=== PATIENT | male | born 1990 | race Caucasian/White ===

== ENCOUNTER 2021-08-23 17:07 | Inpatient (IN) | payer SELFPAY ==
[2021-08-23] VITALS (9 sets, daily range): BP systolic 117–129; BP diastolic 63–74; PULSE 26–105; RESP 18–36; TEMP 36.9–37.6; O2SAT 83–96; BMI 30.6; BMI 29.7
--- NOTE | 2021-08-23 17:47 | EKG12_ITS ---
Test Reason : Blood Pressure : / mmHG Vent. Rate : 111 BPM Atrial Rate : 111 BPM P-R Int : 112 ms QRS Dur : 086 ms QT Int : 318 ms P-R-T Axes : 040 065 -16 degrees QTc Int : 432 ms Sinus tachycardia T wave abnormality, consider inferior ischemia Abnormal ECG Confirmed by KATHERINE ANDERSON, DEBORAH ([id number]), graphic editor JANELL JEFFERS ([id number]) on 08/27/2021 1:01:29 PM Referred By: EMILIO Confirmed By:DEBORAH MURPHY MD
[2021-08-23] MEDS: dexAMETHasone 10 MG/ML Vial IV (17:56)
[2021-08-23 18:03] LABS: Absolute Lymphocyte Count 0.51 X10^3/uL (0.83-4.51); Absolute Neutrophil Count 6.5 X10^3/uL (2.0-7.7); Basophil# 0.01 X10^3/uL; Basophil% 0.1 % (0-1); Hematocrit 43.5 % (40-54); Lymphocyte # 0.51 X10^3/ul (0.83-4.51); Mean Corp Hgb Conc 34.5 g/dL (32-36); Mean Corpuscular Hgb 30.3 pg (27.0-32.0); Mean Corpuscular Volume 87.9 fL (80-94); Mean Platelet Vol. 9.5 fl (6.2-12.0); Monocyte# 0.18 X10^3/uL; Monocyte% 2.5 % (0-10); NRBC Flagged by Analyzer 0 % (0-5); Neutrophil # 6.53 X10^3/uL (2.7-7.7); POSITIVE DIFFERENTIAL YES; Platelet Count 273 K/mm3 (150-450); RBC Distribution Width CV 11.5 % (11.6-14.6); Red Blood Count 4.95 M/mm3 (4.6-6.2); White Blood Count 7.3 K/mm3 (4.4-11.0)
[2021-08-23 18:05] LABS: Anion Gap 7 (5-15); BUN 13 mg/dL (7-18); BUN/Creat Ratio 15.8 RATIO (10-20); Calcium,Total 8.7 mg/dL (8.5-10.1); Chloride 104 mmol/L (98-107); Creatinine, Serum 0.82 mg/dL (0.70-1.30); EST Glomerular Filtration Rate 114 mL/min (>60); Est Glom Filt Rate - Afr Amer 138 mL/min (>60); Estimated Creatinine Clearance 136.47 ml/min; Glucose 117 mg/dL (74-106); Magnesium 2.7 mg/dL (1.6-2.6); Potassium 3.4 mmol/L (3.5-5.1); Sodium Level 136 mmol/L (136-145)
--- NOTE | 2021-08-23 18:15 | CT_ITS ---
STUDY: CTA CHEST REASON FOR EXAM: Male, 31 years old. Hypoxia. Question PE. Shortness of breath with loss of taste and smell. Body aches beginning 12 days ago. Oxygen saturation is 81 on room air. Negative COVID test. RADIATION DOSAGE (If Supplied By Facility): CTDIvol = ( 9.815 ) mGy, DLP = ( 530.57 ) mGycm TECHNIQUE: The examination was performed with the intravenous administration of IV 100mL Isovue-370. Post-processing of the angiographic images was performed, with multiplanar reformation and 3D reconstruction. Individualized dose optimization techniques were used for this CT. COMPARISON: None. FINDINGS: Normal enhancement of the main pulmonary artery and right and left pulmonary arteries. Normal enhancement of the bilateral peripheral pulmonary arteries. There is no demonstrated pulmonary embolism. Normal thoracic aorta and visualized great vessels. There is no demonstrated aortic dissection. Normal heart and pericardium. Nonspecific mediastinal lymphadenopathy. Normal hilar regions. Normal visualized trachea and bronchi. The lungs are well expanded. Groundglass peripheral pulmonary infiltrates most marked at the lung bases. There is no focal mass or consolidation. Normal pleura. Normal chest wall structures. Normal osseous structures. Normal visualized upper abdomen. CT/CTA Chest W/WO Contrast IMPRESSION: 1. No evidence of pulmonary embolus. 2. No aortic dissection or aneurysm. 3. Groundglass pulmonary infiltrates suspicious for COVID pneumonia. Electronically Signed: Oli Degroot DO at 19:24 EDT Tel [phone], Service support ,
[2021-08-23 18:17] LABS: Differential Indicated SCAN CRITERIA MET
--- NOTE | 2021-08-23 18:18 | ED.VIS.DYS ---
HPI History of Present Illness Chief Complaint: Shortness of Breath Narrative Narrative: Patient is a 31-year-old male with no reported significant past medical or surgical history. He states he does not smoke or vape and he does not need supplemental oxygen. He also reports he is not vaccinated against Covid. He reports that approximately a week ago he began with mild congestion and cough and fatigue. He states that over the past week the symptoms have been slowly worsening to the point where he is short of breath with speech or any type of mild exertion. Secondary to this EMS was called and he was brought in for evaluation. EMS does report that upon arrival his pulse ox was in the low 80s on room air [facility] Home Medications acetaminophen 1,000 mg PO BID 08/23/21 [History Last Taken 08/21/21] naproxen sodium [Aleve] 220 mg PO BID PRN 08/23/21 [History Last Taken 08/23/21 04:00] Allergy/AdvReac Type Severity Reaction Status Date / Time No Known Allergies Allergy Verified 08/23/21 17:08 Surgical History History of orthopedic surgery Social History Smoking Status: Never smoker [facility] ED Constitutional Constitutional ED: Denies chills or fever(s) ENT ENT ED: Reports rhinorrhea and sore throat Cardiovascular Cardiovascular: Reports racing heartbeat; Denies chest pain Respiratory/Chest Respiratory/Chest: Reports cough, dyspnea, dyspnea on exertion and sputum Gastrointestinal Gastrointestinal: Denies abdominal pain, diarrhea, nausea or vomiting Genitourinary Genitourinary ED: Denies dysuria Musculoskeletal Musculoskeletal: Reports myalgias Integumentary Denies rash Neurologic Neurologic: Denies headache(s) Hematologic/Lymphatic Hematologic/Lymphatic: Denies easy bleeding or easy bruising EXAM Physical Exam Const Vital Signs: 08/23/21 17:08 08/23/21 17:13 08/23/21 18:03 Temperature 99.1 F 99.1 F Temperature Source Temporal Temporal Pulse Rate 101 H 26 L Respiratory Rate 31 H 25 H Respiratory Effort Short of Breath Respiratory Pattern Tachypnea Blood Pressure 126/74 H 126/74 H Blood Pressure Mean 91 91 Pulse Ox 94 95 Oxygen Delivery Method Nasal Cannula Nasal Cannula Oxygen Flow Rate (L/min) 3 3 08/23/21 19:53 08/23/21 20:13 08/23/21 20:25 Temperature 99.6 F H 99.6 F H Temperature Source Oral Oral Pulse Rate 87 83 83 Respiratory Rate 20 H 23 H 23 H Respiratory Effort Respiratory Pattern Blood Pressure 129/72 H 126/70 H 126/70 H Blood Pressure Mean 91 88 88 Pulse Ox 95 83 96 Oxygen Delivery Method Nasal Cannula Nasal Cannula Nasal Cannula Oxygen Flow Rate (L/min) 3 3 3 Positive well nourished and well developed General Appearance ED: well developed HEENT Reports moist mucous membranes HEENT Narrative: No tongue or lip swelling Eyes PERRL and EOMs intact bilaterally Neck supple and no JVD Neck Narrative: Positive anterior cervical lymphadenopathy Resp Resp Narrative: Patient has tachypnea and accessory muscle use. Breath sounds are diminished throughout with faint expiratory wheeze Cardio regular rate Cardio Narrative: Tachycardic rate with regular rhythm GI non-tender and non-distended Auscultation: normoactive bowel sounds Palpation: soft Extremity normal to inspection Extremity Narrative: No asymmetric edema no pitting edema negative Homans' sign bilaterally Neuro oriented x3 and CN's II-XII intact bilaterally Sensorium / Orientation: alert Psych mental status grossly normal Skin no rashes or lesions noted Rashes: no rashes MDM MDM MDM Narrative Medical decision making narrative: Patient presented to the ER hypoxic and tachycardic with symptoms concerning for Covid. His EKG showed an S1Q3T3 and therefore a CTA was obtained which shows groundglass opacities consistent with Covid pneumonia but no pulmonary embolus. Remainder of his labs reveal no clinically significant findings but with his persistent hypoxia and groundglass opacities on CTA I do feel he needs to be placed in the hospital and therefore will be admitted at this time Lab Data Attestation: I reviewed the patient's lab results. Labs: Laboratory Results - last 24 hr 08/23/21 08/23/21 17:00 17:00 WBC 7.3 RBC 4.95 Hgb 15.0 Hct 43.5 MCV 87.9 MCH 30.3 MCHC 34.5 RDW Std Deviation 37.0 RDW Coeff of Shanae 11.5 L Plt Count 273 MPV 9.5 Immature Gran % (Auto) 0.400 Neut % (Auto) 90.0 H Lymph % (Auto) 7.0 L [place] % (Auto) 2.5 Eos % (Auto) 0.0 Baso % (Auto) 0.1 Absolute Neuts (auto) 6.5 Absolute Lymphs (auto) 0.51 L Nucleated RBC % 0 Differential Comment SEE COMMENT Platelet Estimate ADEQUATE RBC Morphology NORM C+C Sodium 136 Potassium 3.4 L Chloride 104 Carbon Dioxide 25.0 Anion Gap 7 BUN 13 Creatinine 0.82 Estim Creat Clear Calc 136.47 Est GFR (MDRD) Af Amer 138 Est GFR (MDRD) Non-Af 114 BUN/Creatinine Ratio 15.8 Glucose 117 H Calcium 8.7 Magnesium 2.7 H Radiography Diagnostic Testing: Radiology Impression Chest CTA 08/23/21 18:15 IMPRESSION: 1. No evidence of pulmonary embolus. 2. No aortic dissection or aneurysm. 3. Groundglass pulmonary infiltrates suspicious for COVID pneumonia. Electronically Signed: Oli Degroot DO at 19:24 EDT Tel [phone], Service support , Critical Care Time Critical Care Time: Yes Critical care time (excluding procedures): - (31 minutes) Discharge Plan Triage Chief Complaint: Shortness of Breath ED Provider: Gume Nieto Dx/Rx/DC Orders Clinical Impression: Acute and chronic respiratory failure with hypoxia Prescriptions: No Action acetaminophen 500 mg Tablet 1,000 mg PO BID RF: 0 naproxen sodium [Aleve] 220 mg Tablet 220 mg PO BID PRN (Reason: Pain) RF: 0 Primary Care Provider: Luis Kan NP Referrals: Luis Kna [employer]ING [employer] SITE MANAGER, DECOMMISSIONING WELL SITE MANAGER-C [Primary Care Provider] - Disposition [facility]
[2021-08-23 18:38] LABS: Platelet Estimate ADEQUATE (ADEQ); Red Cell Morphology NORM C+C NORMAL (NORM C&C)
--- NOTE | 2021-08-23 18:57 | HP.PCM.HOS_ITS ---
HPI - General General Date of Admission: 08/23/21 Date of Service: 08/23/21 Chief Complaint: COVID sxs, worsening, hypoxic HPI Narrative The patient is a 31 y/o M w/ no marked PMHx who presents to the [facility] ED on 08/23/21 with history of onset ~11 days prior fever, chills, headache, cough, dyspnea, mildly loose stools, loss of sense of taste and smell with worsening fatigue and malaise prompting eventual ED evaluation. He noted notable increased work of breathing which was the primary etiology for presentation. He denies having been vaccinated but is amenable to vaccination once he recovers. He denies being around any ill individuals. Work-up in the ED included T 99.1, heart rate 105, BP 126/74, respiratory rate initially 36, initially 87% on room air with improvement to respiratory rate 25, 95% on 3 L nasal cannula, CBC with WC 7.3, hemoglobin 15, platelet 273 with lymphopenia, BMP with potassium 3.4, glucose 117, magnesium 2.7, CTPA without evidence of PE, no dissection or aneurysm with diffuse ground-glass pulmonary infiltrates consistent with COVID PNA, rapid Covid antigen negative, pending PCR upon admission. In the ED patient administered IV decadron. [facility] Medical History (Updated 08/23/21 @ 20:[address] Carlie Flores MD) No significant past medical history Home Medications acetaminophen 1,000 mg PO BID 08/23/21 [History Last Taken 08/21/21] naproxen sodium [Aleve] 220 mg PO BID PRN 08/23/21 [History Last Taken 08/23/21 04:00] Allergy/AdvReac Type Severity Reaction Status Date / Time No Known Allergies Allergy Verified 08/23/21 17:08 Family History (Updated 08/23/21 @ 20:[address] Carlie Flores MD) Father Diabetes other (No marked maternal family history including HD, DM, CA.) Surgical History (Updated 08/23/21 @ 20:[address] Carlie Flores MD) History of orthopedic surgery History of surgery on extremity Status post right foot surgery Social History (Updated 08/23/21 @ 20:[address] Carlie Flores MD) household members: none Smoking Status: Never smoker alcohol intake: never substance use type: does not use ROS ROS Narrative Admission Review of Systems: CONSTITUTIONAL: No weight loss, + fever, chills, weakness or fatigue. HEENT: + FUENTES, congestion. Eyes: No visual loss, blurred vision, double vision or yellow sclerae. Ears, Nose, Throat: No hearing loss, sneezing. SKIN: No rash or itching, lesions, wounds. CARDIOVASCULAR: No chest pain, chest pressure or chest discomfort, palpitations, edema, orthopnea, syncopal events. RESPIRATORY: + shortness of breath, cough without marked sputum, No wheezing, hemoptysis. GASTROINTESTINAL: + anorexia, diarrhea, No nausea, vomiting, abdominal pain, melena, BRBPR. GENITOURINARY: No dysuria, frequency, urgency or retention. NEUROLOGICAL: + headache, No dizziness, syncope, paralysis, ataxia, numbness or tingling in the extremities, focal weakness, change in bowel or bladder control, seizure. MUSCULOSKELETAL: + muscle, back pain, joint pain or stiffness. HEMATOLOGIC: No anemia, bleeding or bruising. LYMPHATICS: No enlarged nodes. No history of splenectomy. PSYCHIATRIC: No history of depression or anxiety. ENDOCRINOLOGIC: No reports of sweating, cold or heat intolerance. No polyuria or polydipsia. ALLERGIES: No history of asthma, hives, eczema or rhinitis. Vital Signs Vital Signs Vital Signs: 08/23/21 17:08 08/23/21 17:13 08/23/21 18:03 Temperature 99.1 F 99.1 F Temperature Source Temporal Temporal Pulse Rate 101 H 26 L Respiratory Rate 31 H 25 H Respiratory Effort Short of Breath Respiratory Pattern Tachypnea Blood Pressure 126/74 H 126/74 H Blood Pressure Mean 91 91 Pulse Ox 94 95 Oxygen Delivery Method Nasal Cannula Nasal Cannula Oxygen Flow Rate (L/min) 3 3 Weight Weight: 219 lb 9.286 oz Body Mass Index (BMI) 30.6 Physical Exam Narrative Physical Examination: General: Awake, alert, oriented x 3 and cooperative, seated upright in the ED bed, fatigued and ill appearing. Skin: Normal color, normal turgor, no icterus, no cyanosis. HEENT: AT/NC, EOMI, PERRLA, dry MM, no carotid bruits or JVD noted. Lungs: Diminished, > bases, increased RR and some accessory muscle usage, evidence mild distress, improved since initial ED presentation, no rales, ronchi or wheezing. Heart: Mildly tachycardic with regular rhythm; no gallop, rub audible. Abdomen: Soft, NTTP, ND, normal BS, no HSM. Extremities: No cyanosis, clubbing, or edema. Neurological: Patient awake, alert, oriented as noted, cognitive function intact; pupils equally reactive to light and accommodation, cranial nerves II- XII grossly normal, moving all 4 extremities, no focal deficits, strength severely globally decreased secondary to acute presentation. Psychiatric: Affect appears fatigued, ill appearing, evidence mild respiratory distress, no acute evidence of depressive or anxiety feelings. Results Lab / Micro Data Result Diagrams: 08/23/21 17:00 08/23/21 17:00 Labs: Laboratory Results - last 24 hr 08/23/21 17:00: Sodium 136, Potassium 3.4 L, Chloride 104, Carbon Dioxide 25.0, Anion Gap 7, BUN 13, Creatinine 0.82, Estim Creat Clear Calc 136.47, Est GFR (MDRD) Af Amer 138, Est GFR (MDRD) Non-Af 114, BUN/Creatinine Ratio 15.8, Glucose 117 H, Calcium 8.7, Magnesium 2.7 H 08/23/21 17:00: WBC 7.3, RBC 4.95, Hgb 15.0, Hct 43.5, MCV 87.9, MCH 30.3, MCHC 34.5, RDW Std Deviation 37.0, RDW Coeff of Shanae 11.5 L, Plt Count 273, MPV 9.5, Immature Gran % (Auto) 0.400, Neut % (Auto) 90.0 H, Lymph % (Auto) 7.0 L, [place] % (Auto) 2.5, Eos % (Auto) 0.0, Baso % (Auto) 0.1, Absolute Neuts (auto) 6.5, Absolute Lymphs (auto) 0.51 L, Nucleated RBC % 0, Differential Comment SEE COMMENT, Platelet Estimate ADEQUATE, RBC Morphology NORM C+C Micro: Microbiology 08/23/21 17:18 Nasal Secretion SARS-CoV-2 Antigen (Rapid) - Final Assessment & Plan Assessment/Plan (1) Acute respiratory failure with hypoxia: (2) Pneumonia due to COVID-19 virus: PLAN: The patient is a 31 y/o M w/ no marked PMHx who presents to the [facility] ED on 08/23/21 with history of onset ~11 days prior fever, chills, headache, cough, dyspnea, mildly loose stools, loss of sense of taste and smell with worsening fatigue and malaise prompting eventual ED evaluation. 1. Acute Dyspnea, Cough, Fever with Acute Bilateral Pneumonia secondary to Acu te Viral Syndrome, COVID-19: Acute antigen negative; however, presentation consistent with COVID PNA as well as work-up, pending PCR upon admission. Will admit to the [facility] with COVID precautions, will maintain on oxygen with wean as tolerated to room air, PRN albuterol, HOB, IS parameters w/ pending sputum cultures, respiratory viral panel and urine antigens, will obtain D-dimer, procalcitonin, CRP, CPK, Ferritin, LDH, trop and BNP, continue supportive care including q 2 hour turning including prone given no prone bed availability and judicious hydration, closely monitor for worsening status for ARDS and multiorgan failure, will initiate and continue IV decadron x 10 doses, > 10 days since onset sxs therefore will defer Remdesivir. 2. Hypokalemia: Admission K+ 3.4, magnesium 2.7, supplementation given, repeat level in AM. 3. DVT Prophylaxis: SCDs, lovenox. 4. Code status: Full Code. Charges/Coding Visit Charges Inpatient E&M: 99593 Init Hosp L2
[2021-08-23 21:27] LABS: Probe Check PASS
[2021-08-23 22:06] LABS: AST(SGOT) 31 U/L (15-37); Alanine Aminotransfer ALT/SGPT 35 U/L (16-61); Albumin, Serum 3.2 g/dL (3.2-5.0); Alkaline Phosphatase 57 U/L (45-117); Bilirubin, Direct 0.26 mg/dL (0.00-0.30); Ferritin 1194 ng/mL (26-388); Globulin 4.7 g/dL (2.2-4.2); LDH 417 U/L (87-241); Phosphorus 1.4 mg/dL (2.5-4.9); Protein, Total 7.9 g/dL (6.4-8.2)
[2021-08-23 22:23] LABS: D-Dimer Quantitative (DVT/PE) 1.07 FEU/ug/m (0.27-0.49)
[2021-08-23 22:29] LABS: BNP,B-Type NATRIURETIC PEPTIDE 11.1 pg/mL (0-100)
[2021-08-23 22:37] LABS: Procalcitonin 0.14 ng/mL (0.00-0.09)
[2021-08-23] MEDS: 0.9% Normal Saline 1,000 ML 100 ML IV (22:58)
[2021-08-23] MEDS: Enoxaparin 30 MG/0.3 ML Syringe SC (22:59)
[2021-08-24] VITALS (10 sets, daily range): BP systolic 109–130; BP diastolic 54–74; PULSE 44–90; RESP 18–20; TEMP 36.5–36.8; O2SAT 94–97
--- NOTE | 2021-08-24 00:03 | PCS.PANDOC ---
PANDEMIC DOCUMENTATION INITIATED: Date: 07/16/2021 Time: 190
[2021-08-24 06:29] LABS: Absolute Neutrophil Count 3.8 X10^3/uL (2.0-7.7); Hematocrit 42.9 % (40-54); Hemoglobin 14.4 g/dL (13.0-16.5); Lymphocyte % 7.3 % (19-41); Mean Corp Hgb Conc 33.6 g/dL (32-36); Mean Corpuscular Hgb 29.9 pg (27.0-32.0); Mean Corpuscular Volume 89.2 fL (80-94); Mean Platelet Vol. 9.5 fl (6.2-12.0); Monocyte# 0.05 X10^3/uL; Monocyte% 1.2 % (0-10); NRBC Flagged by Analyzer 0 % (0-5); Neutrophil # 3.75 X10^3/uL (2.7-7.7); POSITIVE DIFFERENTIAL YES; POSITIVE MORPHOLOGY YES; Platelet Count 268 K/mm3 (150-450); RBC Distribution Width CV 11.6 % (11.6-14.6); RBC Distribution Width SD 38.1 fl (35.1-43.9); Red Blood Count 4.81 M/mm3 (4.6-6.2); White Blood Count 4.1 K/mm3 (4.4-11.0)
[2021-08-24 06:38] LABS: Differential Indicated SCAN CRITERIA MET
[2021-08-24 06:48] LABS: ALB/GLOB Ratio 0.6 RATIO (0.9-2.4); AST(SGOT) 26 U/L (15-37); Alanine Aminotransfer ALT/SGPT 35 U/L (16-61); Albumin, Serum 2.8 g/dL (3.2-5.0); Alkaline Phosphatase 53 U/L (45-117); Anion Gap 6 (5-15); BUN 16 mg/dL (7-18); BUN/Creat Ratio 22.3 RATIO (10-20); Calcium,Total 8.4 mg/dL (8.5-10.1); Chloride 107 mmol/L (98-107); Creatinine, Serum 0.72 mg/dL (0.70-1.30); EST Glomerular Filtration Rate 134 mL/min (>60); Est Glom Filt Rate - Afr Amer 163 mL/min (>60); Estimated Creatinine Clearance 155.42 ml/min; Globulin 4.6 g/dL (2.2-4.2); Glucose 214 mg/dL (74-106); Protein, Total 7.4 g/dL (6.4-8.2); Sodium Level 137 mmol/L (136-145)
[2021-08-24 07:15] LABS: Differential Comment SCANNED
[2021-08-24 07:48] LABS: Phosphorus 2.2 mg/dL (2.5-4.9)
[2021-08-24] MEDS: Enoxaparin 30 MG/0.3 ML Syringe SC ×2 (09:02→21:16)
[2021-08-24] MEDS: 0.9% Saline Lock 10 ML Syringe IV (09:02)
[2021-08-24] MEDS: dexAMETHasone 4 MG/ML Vial 6 MG IV (09:02)
--- NOTE | 2021-08-24 10:35 | CASEMGMT ---
JEAN CARLOS JEFF Assessment: Face to Face with pt for initial transition planning/care coordination assessment. JEAN CARLOS JEFF introduced self and role at [facility], pt voices understanding and consents to assessment. Pt is A/O x4 and answers all questions appropriately at this time. Pt lying in bed with O2 in no distress. Care providers, pharmacy, and demographics verified/updated. Admitting Dx: COVID PNA, hypoxia PCP: Richardson Kan VASCULAR NEUROLOGIST Specialists: Pt denies. Preferred Pharmacy: [facility] while inpatient. Insurance: [employer] Prescription Benefit: Pt reports he gets a discount card for prescriptions. LW/HPOA: Pt denies having LW/DPOA and need for info regarding any AD. LNOK: Yolande Adams, mother Living Arrangements: Pt lives alone in a two story house but mainly uses the first floor with two steps to enter. Pt reports being I in ADL's and denies concerns at home. Transportation: Pt states he drives himself and denies concerns with transportation. Pt states currently he feels weak but he has friends and family who can transport him. DME/HHC: Pt denies having any DME or previous HHC. Pt states he was first tested at [facility] for COVID. Pt states his family, friends and [facility] have already been providing groceries and supplies for pt. Pt states with his insurance, he receives a bill from the provider and then submits it to his insurance who then pays it. Pt states he has no in network providers. No insurance card scanned in. Pt states he prefers [employer] for his O2 should he need it when dc'ing. Pt works timers inspector. Denies any alcohol, cigarette, street drug or illegal drug use. Pt states no concerns with going home at time of dc. Pt states no further concerns/needs. CM to follow. Advised pt to ask CM if any further question/concerns/needs arise, voices understanding. Pt Goal: Home Plan: Home
[2021-08-24] MEDS: Na Biphos/Potassium Phosphate PACKET 1 PACKET PO ×3 (11:07→21:16)
--- NOTE | 2021-08-24 14:09 | PCM.PN.HOSP ---
Subjective Subjective Patient was seen and examined. He is on 2 L of oxygen. He is starting to feel little better. Denied any fever or chills. Objective Data Objective Data Vital Signs: Vital Signs Temp Pulse Resp BP Pulse Ox 98.3 F 79 18 126/72 H 97 08/24/21 13:24 08/24/21 13:24 08/24/21 13:24 08/24/21 13:24 08/24/21 13:24 Oxygen Flow Rate (L/min) 3 Oxygen Delivery Method Nasal Cannula Weight: 97.069 kg Body Mass Index (BMI) 29.7 Intake & Output: Intake and Output for Last 24 Hours 08/22/21 08/23/21 08/24/21 23:59 23:59 23:59 Intake Total 240 / 240 2190 / 2190 Balance 240 / 240 2190 / 2190 Lab / Micro Data Result Diagrams: 08/24/21 05:35 08/24/21 05:35 Labs: Laboratory Results - last 24 hr 08/23/21 17:00: Sodium 136, Potassium 3.4 L, Chloride 104, Carbon Dioxide 25.0, Anion Gap 7, BUN 13, Creatinine 0.82, Estim Creat Clear Calc 136.47, Est GFR (MDRD) Af Amer 138, Est GFR (MDRD) Non-Af 114, BUN/Creatinine Ratio 15.8, Glucose 117 H, Calcium 8.7, Magnesium 2.7 H 08/23/21 17:00: WBC 7.3, RBC 4.95, Hgb 15.0, Hct 43.5, MCV 87.9, MCH 30.3, MCHC 34.5, RDW Std Deviation 37.0, RDW Coeff of Shanae 11.5 L, Plt Count 273, MPV 9.5, Immature Gran % (Auto) 0.400, Neut % (Auto) 90.0 H, Lymph % (Auto) 7.0 L, [place] % (Auto) 2.5, Eos % (Auto) 0.0, Baso % (Auto) 0.1, Absolute Neuts (auto) 6.5, Absolute Lymphs (auto) 0.51 L, Nucleated RBC % 0, Differential Comment SEE COMMENT, Platelet Estimate ADEQUATE, RBC Morphology NORM C+C 08/23/21 17:00: Phosphorus 1.4 L, Ferritin 1194 H, Total Bilirubin 0.90, Direct Bilirubin 0.26, AST 31, ALT 35, Alkaline Phosphatase 57, Lactate Dehydrogenase 417 H, C-React Prot Ext Range 188.00 H, Total Protein 7.9, Albumin 3.2, Globulin 4.7 H 08/23/21 17:00: B-Natriuretic Peptide 11.1 08/23/21 19:26: COVID-19 ([facility]) Positive 08/23/21 21:40: D-Dimer Quant (PE/DVT) 1.07 H* 08/23/21 21:40: Procalcitonin 0.14 H 08/24/21 05:35: WBC 4.1 L, RBC 4.81, Hgb 14.4, Hct 42.9, MCV 89.2, MCH 29.9, MCHC 33.6, RDW Std Deviation 38.1, RDW Coeff of Shanae 11.6, Plt Count 268, MPV 9.5, Immature Gran % (Auto) 0.500, Neut % (Auto) 91.0 H, Lymph % (Auto) 7.3 L, [place] % (Auto) 1.2, Eos % (Auto) 0.0, Baso % (Auto) 0.0, Absolute Neuts (auto) 3.8, Absolute Lymphs (auto) 0.30 L, Nucleated RBC % 0, Differential Comment SCANNED, Diff Path Review March08/24/21 05:35: Sodium 137, Potassium 4.0, Chloride 107, Carbon Dioxide 24.0, Anion Gap 6, BUN 16, Creatinine 0.72, Estim Creat Clear Calc 155.42, Est GFR (MDRD) Af Amer 163, Est GFR (MDRD) Non-Af 134, BUN/Creatinine Ratio 22.3 H, Glucose 214 H, Calcium 8.4 L, Total Bilirubin 0.50, AST 26, ALT 35, Alkaline Phosphatase 53, Total Protein 7.4, Albumin 2.8 L, Globulin 4.6 H, Albumin/Globulin Ratio 0.6 L 08/24/21 05:35: Phosphorus 2.2 L Micro: Microbiology 08/24/21 00:10 Urine, Clean Catch Streptococcus pneumoniae Antigen (M - Final 08/24/21 00:10 Urine, Clean Catch Legionella Antigen - Final 08/23/21 17:18 Mucosa - Nasopharyngeal Respiratory Panel (PCR) - Final 08/23/21 17:18 Nasal Secretion SARS-CoV-2 Antigen (Rapid) - Final Radiography Diagnostic Testing: Radiology Impression Chest CTA 08/23/21 18:15 IMPRESSION: 1. No evidence of pulmonary embolus. 2. No aortic dissection or aneurysm. 3. Groundglass pulmonary infiltrates suspicious for COVID pneumonia. Electronically Signed: Oli Degroot DO at 19:24 EDT Tel [phone], Service support , Physical Exam Narrative Physical exam: General: Alert, Oriented x3, Cooperative, No apparent distress, obese, on 2 L oxygen HEENT: Atraumatic Oral: Moist Mucosa Neck: Supple Lungs: Clear to auscultation Cardiovascular: HS I+II, regular, no murmurs Abdomen: Bowel Sounds Present, Soft, Non Tender Extremities: No edema Assessment & Plan Assessment/Plan (1) Acute respiratory failure with hypoxia: (2) Pneumonia due to COVID-19 virus: PLAN: 1. Acute hypoxic respiratory failure secondary to acute COVID-19 pneumonia Patient is currently on 3 L of oxygen CTA of the chest is negative for acute PE. Showed bilateral groundglass opacities. Patient is on Decadron, out of the window for remdesivir Encourage use of incentive spirometer, wean off SPO2 more than 94% 2. Acute hypophosphatemia, phosphorus is 2.2, replaced 3. Hypokalemia, resolved Charges/Coding Visit Charges Inpatient E&M: 98768 Subs Hosp L3
[2021-08-25] VITALS (11 sets, daily range): BP systolic 104–141; BP diastolic 51–62; PULSE 51–85; RESP 18–22; TEMP 36.4–36.7; O2SAT 86–98
[2021-08-25 08:16] LABS: Absolute Lymphocyte Count 0.67 X10^3/uL (0.83-4.51); Absolute Neutrophil Count 10.8 X10^3/uL (2.0-7.7); Basophil# 0.01 X10^3/uL; Basophil% 0.1 % (0-1); Hematocrit 41.3 % (40-54); Hemoglobin 13.7 g/dL (13.0-16.5); Lymphocyte # 0.67 X10^3/ul (0.83-4.51); Lymphocyte % 5.6 % (19-41); Mean Corp Hgb Conc 33.2 g/dL (32-36); Mean Corpuscular Hgb 29.6 pg (27.0-32.0); Mean Corpuscular Volume 89.2 fL (80-94); Mean Platelet Vol. 9.7 fl (6.2-12.0); Monocyte# 0.46 X10^3/uL; Monocyte% 3.8 % (0-10); NRBC Flagged by Analyzer 0 % (0-5); Neutrophil # 10.76 X10^3/uL (2.7-7.7); Neutrophil % 89.8 % (47-70); Platelet Count 376 K/mm3 (150-450); RBC Distribution Width CV 11.9 % (11.6-14.6); RBC Distribution Width SD 38.5 fl (35.1-43.9); Red Blood Count 4.63 M/mm3 (4.6-6.2)
[2021-08-25 08:46] LABS: ALB/GLOB Ratio 0.6 RATIO (0.9-2.4); AST(SGOT) 19 U/L (15-37); Alanine Aminotransfer ALT/SGPT 32 U/L (16-61); Albumin, Serum 2.7 g/dL (3.2-5.0); Alkaline Phosphatase 50 U/L (45-117); Anion Gap 6 (5-15); BUN 20 mg/dL (7-18); Calcium,Total 8.8 mg/dL (8.5-10.1); Chloride 110 mmol/L (98-107); Creatinine, Serum 0.77 mg/dL (0.70-1.30); EST Glomerular Filtration Rate 124 mL/min (>60); Est Glom Filt Rate - Afr Amer 150 mL/min (>60); Estimated Creatinine Clearance 145.33 ml/min; Globulin 4.3 g/dL (2.2-4.2); Glucose 122 mg/dL (74-106); Potassium 4.4 mmol/L (3.5-5.1); Sodium Level 142 mmol/L (136-145)
[2021-08-25] MEDS: Furosemide 40 MG/4 ML Vial IV (10:21)
[2021-08-25] MEDS: dexAMETHasone 4 MG/ML Vial 6 MG IV (10:21)
[2021-08-25] MEDS: Enoxaparin 30 MG/0.3 ML Syringe SC ×2 (10:22→21:17)
--- NOTE | 2021-08-25 10:31 | PCM.PN.HOSP ---
Subjective Subjective Patient was seen and examined. He is on 2 to 3 L of oxygen. He feels improved. Objective Data Objective Data Vital Signs: Vital Signs Temp Pulse Resp BP Pulse Ox 98.0 F 61 20 H 108/62 93 08/25/21 08:21 08/25/21 08:21 08/25/21 08:59 08/25/21 08:21 08/25/21 08:59 Oxygen Flow Rate (L/min) 2 Oxygen Delivery Method Nasal Cannula Weight: 94.8 kg Body Mass Index (BMI) 29.7 Intake & Output: Intake and Output for Last 24 Hours 08/23/21 08/24/21 08/25/21 23:59 23:59 23:59 Intake Total 240 / 240 3140 / 3140 500 / 500 Balance 240 / 240 3140 / 3140 500 / 500 Lab / Micro Data Result Diagrams: 08/25/21 06:45 08/25/21 06:45 Labs: Laboratory Results - last 24 hr 08/25/21 06:45: WBC 12.0 H, RBC 4.63, Hgb 13.7, Hct 41.3, MCV 89.2, MCH 29.6, MCHC 33.2, RDW Std Deviation 38.5, RDW Coeff of Shanae 11.9, Plt Count 376, MPV 9.7, Immature Gran % (Auto) 0.700, Neut % (Auto) 89.8 H, Lymph % (Auto) 5.6 L, [place] % (Auto) 3.8, Eos % (Auto) 0.0, Baso % (Auto) 0.1, Absolute Neuts (auto) 10.8 H, Absolute Lymphs (auto) 0.67 L, Nucleated RBC % 0 08/25/21 06:45: Sodium 142, Potassium 4.4, Chloride 110 H, Carbon Dioxide 26.0, Anion Gap 6, BUN 20 H, Creatinine 0.77, Estim Creat Clear Calc 145.33, Est GFR (MDRD) Af Amer 150, Est GFR (MDRD) Non-Af 124, BUN/Creatinine Ratio 26.0 H, Glucose 122 H, Calcium 8.8, Total Bilirubin 0.40, AST 19, ALT 32, Alkaline Phosphatase 50, Total Protein 7.0, Albumin 2.7 L, Globulin 4.3 H, Albumin/Globulin Ratio 0.6 L Micro: Microbiology 08/24/21 00:10 Urine, Clean Catch Streptococcus pneumoniae Antigen (M - Final 08/24/21 00:10 Urine, Clean Catch Legionella Antigen - Final 08/23/21 17:18 Mucosa - Nasopharyngeal Respiratory Panel (PCR) - Final 08/23/21 17:18 Nasal Secretion SARS-CoV-2 Antigen (Rapid) - Final Physical Exam Narrative Physical exam: General: Alert, Oriented x3, Cooperative, No apparent distress, obese, on 2 L oxygen HEENT: Atraumatic Oral: Moist Mucosa Neck: Supple Lungs: Diminished to auscultation Cardiovascular: HS I+II, regular, no murmurs Abdomen: Bowel Sounds Present, Soft, Non Tender Extremities: No edema Assessment & Plan Assessment/Plan (1) Acute respiratory failure with hypoxia: (2) Pneumonia due to COVID-19 virus: PLAN: 1. Acute hypoxic respiratory failure secondary to acute COVID-19 pneumonia Patient remains on 3 L of oxygen CTA of the chest is negative for acute PE. Showed bilateral groundglass opacities. Patient is on Decadron, out of the window for remdesivir Encourage use of incentive spirometer, wean off SPO2 more than 94% Trial of Lasix 40 mg IV x1 2. Acute hypophosphatemia, resolved 3. Hypokalemia, resolved Charges/Coding Visit Charges Inpatient E&M: 19812 Subs Hosp L2
[2021-08-25] MEDS: Na Biphos/Potassium Phosphate PACKET 1 PACKET PO ×3 (13:15→21:17)
[2021-08-26 02:39] VITALS: BP 111/53; PULSE 53; RESP 18; TEMP 36.5; O2SAT 95
[2021-08-26 07:24] LABS: Absolute Neutrophil Count 6.1 X10^3/uL (2.0-7.7); Basophil# 0.01 X10^3/uL; Basophil% 0.1 % (0-1); Hematocrit 40.5 % (40-54); Hemoglobin 13.6 g/dL (13.0-16.5); Lymphocyte % 15.3 % (19-41); Mean Corp Hgb Conc 33.6 g/dL (32-36); Mean Corpuscular Hgb 30.2 pg (27.0-32.0); Mean Platelet Vol. 9.7 fl (6.2-12.0); Monocyte# 0.47 X10^3/uL; NRBC Flagged by Analyzer 0 % (0-5); Neutrophil % 77.8 % (47-70); Platelet Count 334 K/mm3 (150-450); RBC Distribution Width CV 11.9 % (11.6-14.6); RBC Distribution Width SD 39.4 fl (35.1-43.9); White Blood Count 7.8 K/mm3 (4.4-11.0)
[2021-08-26 08:11] LABS: ALB/GLOB Ratio 0.7 RATIO (0.9-2.4); AST(SGOT) 18 U/L (15-37); Alanine Aminotransfer ALT/SGPT 31 U/L (16-61); Albumin, Serum 2.6 g/dL (3.2-5.0); Alkaline Phosphatase 50 U/L (45-117); Anion Gap 7 (5-15); BUN 20 mg/dL (7-18); BUN/Creat Ratio 27.1 RATIO (10-20); Calcium,Total 8.4 mg/dL (8.5-10.1); Chloride 106 mmol/L (98-107); Creatinine, Serum 0.74 mg/dL (0.70-1.30); EST Glomerular Filtration Rate 130 mL/min (>60); Est Glom Filt Rate - Afr Amer 157 mL/min (>60); Estimated Creatinine Clearance 151.22 ml/min; Globulin 3.8 g/dL (2.2-4.2); Glucose 92 mg/dL (74-106); Potassium 3.9 mmol/L (3.5-5.1); Protein, Total 6.4 g/dL (6.4-8.2); Sodium Level 140 mmol/L (136-145)
[2021-08-26 08:24] VITALS: BP 110/57; PULSE 60; RESP 20; TEMP 36.7; O2SAT 94
[2021-08-26 08:25] VITALS: O2SAT 84
[2021-08-26 08:27] VITALS: O2SAT 84; O2SAT 91; O2SAT 93
[2021-08-26 08:29] VITALS: RESP 20; O2SAT 93
[2021-08-26] MEDS: Na Biphos/Potassium Phosphate PACKET 1 PACKET PO (10:45)
[2021-08-26] MEDS: Enoxaparin 30 MG/0.3 ML Syringe SC (10:46)
[2021-08-26] MEDS: dexAMETHasone 4 MG/ML Vial 6 MG IV (10:46)
[2021-08-26] MEDS: 0.9% Saline Lock 10 ML Syringe IV (10:47)
--- NOTE | 2021-08-26 11:45 | DCINST_ITS ---
Discharge Instructions Follow Up Care Test Results: Test results from this visit will be discussed in further detail at your follow-up appointment, if applicable. Discharge Plan Admission Admit Date/Time: 08/23/21 20:01 Primary Reason for Your Visit: Acute hypoxic respiratory failure secondary to acute COVID-19 pneumonia Attending Provider: Jennifer Newman Primary Care Provider: Luis Kan TOOL DESIGN ENGINEER Instructions Additional Instructions / Restrictions: You are being discharged with oxygen. Continue to use your oxygen all the time. Continue to use your incentive spirometer. Continue to remain active and eat healthy. Let your doctor know if you develop fever >101.3F or have progressive worsening shortness of breath. Follow-up with your primary care doctor to have your continued oxygen use reevaluated. Be careful of going near open flames whilst on oxygen. Complete your Decadron as prescribed. Continue to use your inhaler as needed for shortness of breath. Continue to quarantine for 20 days total from the start of your symptoms. You are strongly encouraged to get vaccinated at the end of your quarantine. Discharge Orders/Prescriptions Prescriptions: New dexamethasone [Decadron] 6 mg tablet 6 mg PO DAILY 7 Days Qty: 7 RF: 0 albuterol sulfate 90 mcg/actuation HFA aerosol inhaler 2 puff inhalation Q4H PRN (Reason: shortness of breath or wheezing) Qty: 8.5 RF: 0 aspirin 81 mg capsule 81 mg PO DAILY 30 Days Qty: 30 RF: 0 Continued acetaminophen 500 mg Tablet 1,000 mg PO BID RF: 0 Discontinued naproxen sodium [Aleve] 220 mg Tablet 220 mg PO BID PRN (Reason: Pain) RF: 0 Referrals / Follow Up: Luis Kan TOOL DESIGN ENGINEER, TOOL DESIGN ENGINEER-C [Primary Care Provider] - Within 2 Weeks Disposition Disposition (needs filled in before D/C Order can be placed): Home, Self Care
--- NOTE | 2021-08-26 11:50 | DS.PCM_ITS ---
Providers Date of Admission: 08/23/21 Date of Discharge: 08/26/21 Primary Care Physician: Luis Kan, SENIOR TEST ENGINEER-C Reason For Visit: COVID PNA, HYPOXIA Diagnosis Discharge Diagnosis (1) Acute respiratory failure with hypoxia: Status: Acute Code(s): J96.01 - Acute respiratory failure with hypoxia (2) Pneumonia due to COVID-19 virus: Status: Acute Code(s): U07.1 - COVID-19; J12.82 - Pneumonia due to coronavirus disease 2019 (3) Hypophosphatemia: Status: Resolved Code(s): E83.39 - Other disorders of phosphorus metabolism (4) Hypokalemia: Status: Acute Code(s): E87.6 - Hypokalemia Medications at Discharge Home Medications acetaminophen 1,000 mg PO BID 08/23/21 albuterol sulfate 2 puff INHALATION Q4H PRN #8.5 g 08/26/21 aspirin 81 mg PO DAILY 30 Days #30 cap 08/26/21 dexamethasone [Decadron] 6 mg PO DAILY 7 Days #7 tab 08/26/21 Hospital Course Operations None Procedures None Summary of Care Provided Minutes Spent on Discharge: 45 Hospital Course: 31-year-old male with no significant past medical history except obesity who comes in with an 11-day history of fever, chills, cough and shortness of breath as well as loss of smell and taste. His initial COVID-19 rapid antigen was negative. COVID-[address] of the chest was negative for acute PE. Showed groundglass opacities suspicious for Covid. Patient required 3 L of oxygen on admission. He had hypokalemia that was replaced. He also had hypophosphatemia that was replaced. Patient was managed on Decadron. He continued to improve. He qualified for oxygen at discharge. He will complete 10 days of Decadron. He will complete quarantine. He was asked to follow-up with his primary care doctor after quarantine. Physical Exam Narrative Physical exam: General: Alert, Oriented x3, Cooperative, No apparent distress, obese, on 2 L oxygen HEENT: Atraumatic Oral: Moist Mucosa Neck: Supple Lungs: Diminished to auscultation Cardiovascular: HS I+II, regular, no murmurs Abdomen: Bowel Sounds Present, Soft, Non Tender Extremities: No edema Weight / BMI Weight Weight: 94.8 kg Body Mass Index (BMI) 29.7 ABG / Lab / Microbiology Data Result Diagrams: 08/26/21 05:25 08/26/21 05:25 Laboratory: Laboratory Results - last 24 hr 08/26/21 05:25: WBC 7.8, RBC 4.50 L, Hgb 13.6, Hct 40.5, MCV 90.0, MCH 30.2, MCHC 33.6, RDW Std Deviation 39.4, RDW Coeff of Shanae 11.9, Plt Count 334, MPV 9.7, Immature Gran % (Auto) 0.800, Neut % (Auto) 77.8 H, Lymph % (Auto) 15.3 L, [place] % (Auto) 6.0, Eos % (Auto) 0.0, Baso % (Auto) 0.1, Absolute Neuts (auto) 6 .1, Absolute Lymphs (auto) 1.20, Nucleated RBC % 0 08/26/21 05:25: Sodium 140, Potassium 3.9, Chloride 106, Carbon Dioxide 27.0, Anion Gap 7, BUN 20 H, Creatinine 0.74, Estim Creat Clear Calc 151.22, Est GFR (MDRD) Af Amer 157, Est GFR (MDRD) Non-Af 130, BUN/Creatinine Ratio 27.1 H, Glucose 92, Calcium 8.4 L, Total Bilirubin 0.50, AST 18, ALT 31, Alkaline Phosphatase 50, Total Protein 6.4, Albumin 2.6 L, Globulin 3.8, Albumin/Globulin Ratio 0.7 L Microbiology: Microbiology 08/24/21 00:10 Urine, Clean Catch Streptococcus pneumoniae Antigen (M - Final 08/24/21 00:10 Urine, Clean Catch Legionella Antigen - Final 08/23/21 17:18 Mucosa - Nasopharyngeal Respiratory Panel (PCR) - Final 08/23/21 17:18 Nasal Secretion SARS-CoV-2 Antigen (Rapid) - Final Meaningful Use Info Meaningful Use Diagnoses (Choose all that apply): None applicable Discharge Plan Admission Admit Date/Time: 08/23/21 20:01 Primary Reason for Your Visit: Acute hypoxic respiratory failure secondary to acute COVID-19 pneumonia Attending Provider: Jennifer Newman Primary Care Provider: Luis Kan SENIOR TEST ENGINEER Instructions Additional Instructions / Restrictions: You are being discharged with oxygen. Continue to use your oxygen all the time. Continue to use your incentive spirometer. Continue to remain active and eat healthy. Let your doctor know if you develop fever >101.3F or have progressive worsening shortness of breath. Follow-up with your primary care doctor to have your continued oxygen use reevaluated. Be careful of going near open flames whilst on oxygen. Complete your Decadron as prescribed. Continue to use your inhaler as needed for shortness of breath. Continue to quarantine for 20 days total from the start of your symptoms. You are strongly encouraged to get vaccinated at the end of your quarantine. Discharge Orders/Prescriptions Prescriptions: New dexamethasone [Decadron] 6 mg tablet 6 mg PO DAILY 7 Days Qty: 7 RF: 0 albuterol sulfate 90 mcg/actuation HFA aerosol inhaler 2 puff inhalation Q4H PRN (Reason: shortness of breath or wheezing) Qty: 8.5 RF: 0 aspirin 81 mg capsule 81 mg PO DAILY 30 Days Qty: 30 RF: 0 Continued acetaminophen 500 mg Tablet 1,000 mg PO BID RF: 0 Discontinued naproxen sodium [Aleve] 220 mg Tablet 220 mg PO BID PRN (Reason: Pain) RF: 0 Referrals / Follow Up: Luis Kan NP, SENIOR TEST ENGINEER-C [Primary Care Provider] - Within 2 Weeks Disposition Disposition (needs filled in before D/C Order can be placed): Home, Self Care Charges/Coding Visit Charges Inpatient E&M: 29858 Disch Hosp
--- NOTE | 2021-08-27 14:22 | CASEMGMT ---
JEAN CARLOS JEFF Discharge Follow-up Phone Call: GEOFFREY: Ethel Strata: 2 Call Date: 08/27/21 Discharge Date: 08/26/21 Time of Call: 1420 Duration: 3 min Admitting Diagnosis: Covid JEAN CARLOS JEFF completed follow-up phone call after recent hospitalization. Patient states he is doing better. Patient had no questions regarding discharge instructions. Patient was able to fill prescriptions without any issues. Patient states his home oxygen was delivered without diffiiculty and he is wearing it. Patient states he has been in contact with PCP office regarding follow-up. Patient continues to quarantine at home.
[2021-08-27 14:23] LABS: Pathologist Review Reviewed
== END 2021-08-26 15:13 | disposition home or self-care (01) | DRG 177 ==
LOC: ED 20:37 → MS3 08-24 07:02
PROVIDERS: Admitting Provider Family Medicine; Emergency Provider Emergency Medicine; PCP Nurse Practitioner Family; Visit Provider Internal Medicine
DX: U07.1 COVID-19 (principal); J12.82 Pneumonia due to coronavirus disease 2019; J96.01 Acute respiratory failure with hypoxia; E83.39 Other disorders of phosphorus metabolism; E87.6 Hypokalemia; E66.9 Obesity, unspecified; Z68.30 Body mass index [BMI] 30.0-30.9, adult
CPT/HCPCS: 36415; 71275; 80048; 80053; 80076; 82728; 83615; 83735; 83880; 84100; 84145; 85025; 85379; 86140; 87426; 87449; 87633; 87635; 93005; 94640; 97802; 99251; 99285; J7030; Q9967; U0005; A4216; G0463; J1940; U0003

== ENCOUNTER → 2025-02-18 | Outpatient (CLI) | payer SELFPAY ==
[2025-02-18 16:57] LABS: Hematocrit 38.4 % (40-54); Hemoglobin 13.3 g/dL (13.0-16.5); Mean Corp Hgb Conc 34.6 g/dL (32-36); Mean Corpuscular Hgb 30.7 pg (27.0-32.0); Mean Corpuscular Volume 88.7 fL (80-94); Mean Platelet Vol. 9.1 fl (6.2-12.0); Platelet Count 297 K/mm3 (150-450); RBC Distribution Width CV 12.8 % (11.6-14.6); RBC Distribution Width SD 40.8 fl (35.1-43.9); Red Blood Count 4.33 M/mm3 (4.6-6.2); White Blood Count 5.3 K/mm3 (4.4-11.0)
[2025-02-18 17:26] LABS: Erythrocyte Sedimentation Rate 4 mm/hr (0-20)
[2025-02-18 18:02] LABS: ALB/GLOB Ratio 1.8 RATIO (0.9-2.4); AST(SGOT) 29 U/L (<=37); Alanine Aminotransfer ALT/SGPT 51 U/L (<=46); Albumin, Serum 4.5 g/dL (3.5-5.0); Alkaline Phosphatase 62 U/L (40-129); Anion Gap 13 (5-15); BUN 15 mg/dL (4-19); Calcium,Total 9.3 mg/dL (7.6-11.0); Carbon Dioxide 22.2 mmol/L (21.0-32.0); Chloride 104 mmol/L (98-108); Creatinine, Serum 0.81 mg/dL (0.70-1.20); EST Glomerular Filtration Rate 117 (>60); Globulin 2.5 g/dL (2.2-4.2); Glucose 89 mg/dL (70-99); Potassium 3.9 mmol/L (3.3-5.1); Sodium Level 139 mmol/L (133-145); Total Bilirubin 0.43 mg/dL (0.00-1.30)
[2025-02-18 18:03] LABS: CRP < 3.00 mg/L (0.0-3.0); Rheumatoid Factor < 10.0 IU/mL (<15)
[2025-02-20 10:07] LABS: ASO Titer 66.5 IU/mL (0.0-200.0)
[2025-02-21 15:08] LABS: Anti-Nuclear Antibody Test Positive (.)
== END | disposition home or self-care (01) ==
LOC: LAB 15:51
PROVIDERS: PCP Nurse Practitioner Family; Referring Provider Nurse Practitioner Family; Visit Provider Nurse Practitioner Family
DX: G72.9 Myopathy, unspecified (principal)
CPT/HCPCS: 36415; 80053; 84443; 85027; 85652; 86038; 86060; 86140; 86431